=== PATIENT | male | born 1980 | race Caucasian/White ===

== ENCOUNTER 2020-03-08 10:27 | Emergency (ER) | payer BC ==
--- NOTE | 2020-03-08 10:40 | EDM.PDOC ---
ED HPI GENERAL MEDICAL PROBLEM - General Chief Complaint: ENT Problem Stated Complaint: EAR ACHE Time Seen by Provider: 03/08/20 10:32 Source of Information: Reports: Patient History Limitations: Reports: No Limitations - History of Present Illness INITIAL COMMENTS - FREE TEXT/NARRATIVE: HISTORY AND PHYSICAL: History of present illness: Patient is a 39-year-old male who presents to the emergency room with complaints of bilateral ear pain. He states that the right ear has been painful for approximately 1 week. He was able to talk to his primary care provider [place] who called in a prescription for a Z-Shar. Today would be his last day of this medication. Pain continues and is now in the left ear as well. He does have some swelling of the right ear canal, causing his hearing to be muffled, which he states he called his primary care provider again who prescribed some eardrops, has not been working. Patient denies any fever, chills, headache, change in vision, syncope or near syncope. Denies any chest pain, back pain, shortness of breath or cough. Denies any abdominal pain, nausea, vomiting, diarrhea, constipation or dysuria. Has not noted any blood in urine or stool. Patient has been eating and drinking appropriately. Review of systems: As per history of present illness and below otherwise all systems reviewed and negative. Past medical history: As per history of present illness and as reviewed below otherwise noncontributory. Surgical history: As per history of present illness and as reviewed below otherwise noncontributory. Social history: See social history for further information Family history: As per history of present illness and as reviewed below otherwise noncontributory. Physical exam: General: Well-developed and well-nourished 39-year-old male. Alert and oriented. Nontoxic-appearing and in no acute distress. HEENT: Atraumatic, normocephalic, pupils equal and reactive bilaterally, negative for conjunctival pallor or scleral icterus, mucous membranes moist, unable to visualize the left TM due to cerumen, right TM is erythematous with absent light reflex and no bulging and canal is erythematous with pain with pulling back on the pinna. No mastoid tenderness, throat clear, neck supple, nontender, trachea midline. No drooling or trismus noted. No meningeal signs. No hot potato voice noted. Lungs: Clear to auscultation, breath sounds equal bilaterally, chest nontender. Heart: S1S2, regular rate and rhythm without overt murmur Abdomen: Soft, nondistended, nontender. Skin: Intact, warm, dry. No lesions or rashes noted. Hematologic: No petechiae or purpra. Mucosa appropriate color and normal nail bed color and refill. Extremities: Atraumatic, moves all extremities per self without difficulty or deficits, negative for cords or calf pain. Neurovascular unremarkable. Neuro: Awake, alert, oriented. Cranial nerves II through XII unremarkable. Cerebellum unremarkable. Motor and sensory unremarkable throughout. Exam nonfocal. Notes: Medication, follow up and supportive care measures were reviewed and discussed. Voices understanding and is agreeable to plan of care. Denies any further questions or concerns at this time. Diagnostics: None Therapeutics: Ciprodex, Augmentin Prescription: Augmentin Impression: Otitis Media and Otitis Externa, Right Plan: 1. Stop the medications you were previously prescribed. Use the Ciprodex drops in the right ear, 4 drops twice daily x 7 days (this medication has a steroid in it to help with swelling). Augmentin twice daily x 10 days. 2. You can alternate Tylenol and ibuprofen as needed for pain management. 3. Please follow-up with primary care or learning administrator as we discussed. If your symptoms should worsen, new symptoms develop or any of the signs and symptoms we discussed should arise please return to the emergency room or call 911 (if needed). Definitive disposition and diagnosis as appropriate pending reevaluation and review of above. Right Ear Pain Score (Numeric/FACES): 8 - Related Data Allergies Allergy/AdvReac Type Severity Reaction Status Date / Time No Known Allergies Allergy Verified 03/08/20 10:40 Home Meds: Home Meds sitaGLIPtin Phos/Metformin HCl [Janumet Xr 100-1,000 mg Tablet] 1 mg PO DAILY 03/08/20 [History] ED ROS ENT - Review of Systems Review Of Systems: Comprehensive ROS is negative, except as noted in HPI. ED EXAM, ENT - Physical Exam Exam: See Below (See dictation) Course - Vital Signs Last Recorded V/S: Last Vital Signs Temp 96.4 F L 03/08/20 10:39 Pulse 89 03/08/20 10:39 Resp 20 03/08/20 10:39 BP 133/75 03/08/20 10:39 Pulse Ox 97 03/08/20 10:39 - Orders/Labs/Meds Orders: Active Orders 24 hr Category Date Time Status Amoxicillin/Clavulanate K [Augmentin 875 MG/125 MG] Med 03/08/20 10:48 Once 1 tab PO ONETIME ONE Ciprofloxacin/Dexamethasone [Ciprodex Otic Susp] Med 03/08/20 11:00 Ordered 4 ml EARBOTH BID Medication Orders Ciprofloxacin/Dexamethasone (Ciprodex Otic Susp) 4 ml EARBOTH BID [facility] Meds: Medications Generic Name Dose Route Start Last Admin Trade Name Freq PRN Reason Stop Dose Admin Ciprofloxacin/Dexamethasone 4 ml 03/08/20 11:00 Ciprodex Otic Susp EARBOTH BID LEONARDO Departure - Departure Time of Disposition: 10:54 Disposition: Home, Self-Care 01 Clinical Impression: Otitis media Qualifiers: Otitis media type: suppurative Chronicity: acute Laterality: right Recurrence: non-recurrent Spontaneous tympanic membrane rupture: without spontaneous rupture Qualified Code(s): H66.001 - Acute suppurative otitis media without spontaneous rupture of ear drum, right ear Otitis externa Qualifiers: Otitis externa type: unspecified type Chronicity: acute Laterality: right Qualified Code(s): H60.501 - Unspecified acute noninfective otitis externa, right ear - Discharge Information Instructions: Otitis Externa, [id number], Otitis Media, Adult, [id number] Referrals: PCP,Not In Area [Primary Care Provider] - Forms: ED Department Discharge Additional Instructions: The following information is given to patients seen in the emergency department who are being discharged to home. This information is to outline your options for follow-up care. We provide all patients seen in our emergency department with a follow-up referral. The need for follow-up, as well as the timing and circumstances, are variable depending upon the specifics of your emergency department visit. If you don't have a primary care physician on staff, we will provide you with a referral. We always advise you to contact your personal physician following an emergency department visit to inform them of the circumstance of the visit and for follow-up with them and/or the need for any referrals to a consulting specialist. The emergency department will also refer you to a specialist when appropriate. This referral assures that you have the opportunity for follow-up care with a specialist. All of these measure are taken in an effort to provide you with optimal care, which includes your follow-up. Under all circumstances we always encourage you to contact your private physician who remains a resource for coordinating your care. When calling for follow-up care, please make the office aware that this follow-up is from your recent emergency room visit. If for any reason you are refused follow-up, please contact the [facility] Emergency Department at and asked to speak to the emergency department charge nurse. [facility] [address] [place] [id number] [facility] [address] [place] [id number] Thank you for choosing the [facility] emergency department in [place] for your medical needs today. It was a pleasure caring for you. Today you were seen in the emergency department for ear pain and infection. 1. Stop the medications you were previously prescribed. Use the Ciprodex drops in the right ear, 4 drops twice daily x 7 days (this medication has a steroid in it to help with swelling and infection). Augmentin twice daily x 10 days. 2. You can alternate Tylenol and ibuprofen as needed for pain management. 3. Please follow-up with primary care or learning administrator as we discussed. If your symptoms should worsen, new symptoms develop or any of the signs and symptoms we discussed should arise please return to the emergency room or call 911 (if needed). Sepsis Event Note (ED) - Focused Exam Vital Signs: Vital Signs Temp Pulse Resp BP Pulse Ox 03/08/20 10:39 96.4 F L 89 20 133/75 97 - My Orders Last 24 Hours: My Active Orders 03/08/20 10:48 Amoxicillin/Clavulanate K [Augmentin 875 MG/125 MG] 1 tab PO ONETIME ONE 03/08/20 11:00 Ciprofloxacin/Dexamethasone [Ciprodex Otic Susp] 4 ml EARBOTH BID - Assessment/Plan Last 24 Hours: My Active Orders 03/08/20 10:48 Amoxicillin/Clavulanate K [Augmentin 875 MG/125 MG] 1 tab PO ONETIME ONE 03/08/20 11:00 Ciprofloxacin/Dexamethasone [Ciprodex Otic Susp] 4 ml EARBOTH BID
[2020-03-08] MEDS ORDERED: Amoxicillin/Clavulanate K 875-125 MG Tab PO ONE (10:48)
[2020-03-08] MEDS ORDERED: Ciprofloxacin/Dexamethasone 0.3-0.1% Otic Susp 7.5 ML Bottle EARBOTH SCH (11:00)
== END 2020-03-08 11:11 | disposition home or self-care (01) ==
LOC: MW.ED 10:27
DX: H66.001 Acute suppurative otitis media without spontaneous rupture of ear drum, right ear (principal); H60.501 Unspecified acute noninfective otitis externa, right ear; H61.22 Impacted cerumen, left ear; Z79.899 Other long term (current) drug therapy
CPT/HCPCS: 99282; A9270